=== PATIENT | male | born 1960 | race Asian ===

== ENCOUNTER → 2016-12-15 | Outpatient (CLI) | payer OTHER | END | disposition home or self-care (01) | LOC: RAD 11:06 | PROVIDERS: ATTEND Family Medicine | DX: M47.896 Other spondylosis, lumbar region (principal); M47.897 Other spondylosis, lumbosacral region; M25.842 Other specified joint disorders, left hand | CPT/HCPCS: 72110 ==

== ENCOUNTER → 2017-03-01 | Outpatient (CLI) | payer OTHER | LOC: CVU 10:44 | PROVIDERS: ATTEND Family Medicine | DX: I08.3 Combined rheumatic disorders of mitral, aortic and tricuspid valves (principal) | CPT/HCPCS: 93306 ==

== ENCOUNTER → 2017-12-07 | Outpatient (CLI) | payer OTHER | END | disposition home or self-care (01) | LOC: RAD 13:42 | PROVIDERS: ATTEND Family Medicine | DX: M47.894 Other spondylosis, thoracic region (principal) | CPT/HCPCS: 72072 ==

== ENCOUNTER 2019-11-23 17:34 | Emergency (ER) | payer BC, OTHER ==
[~2019-11-23] VITALS: Ht 165.1 cm; Wt 76.9 kg
--- NOTE | 2019-11-23 19:42 | NUR ---
C/O PAIN TO POSTERIOR BASE OF NECK, LT SIDED X 1 WEEK. DENIES TRAUMA, NUMBNESS/TINGLING TO UE'S BILAT. WORKS IN [employer] + ROM UE'S BILAT, RADIAL PULSES STRONG & REG BILAT.
[2019-11-23] MEDS ORDERED: METOPROLOL (19:45)
[2019-11-23] MEDS ORDERED: AMLODIPINE (19:45)
[2019-11-23] MEDS ORDERED: METF500T17 PO (19:49)
[2019-11-23] MEDS ORDERED: DM MEDICATION (19:49)
[2019-11-23] MEDS ORDERED: [UNRECOGNIZED DRUG - REMARK] (19:49)
[2019-11-23] MEDS ORDERED: MITIGARE (19:49)
[2019-11-23] MEDS ORDERED: TERAZOSIN (19:49)
[2019-11-23] MEDS ORDERED: INDOMETHACIN (19:49)
[2019-11-23] MEDS ORDERED: ALLO100T30 PO (19:49)
[2019-11-23] MEDS ORDERED: KETOROLAC 30 MG/1 ML ONE (19:57)
[2019-11-23] MEDS ORDERED: METHOCARBAMOL 750 MG TABLET ONE (19:57)
[2019-11-23] MEDS ORDERED: KETOROLAC 30 MG/1 ML IM ONE (20:00)
[2019-11-23] MEDS ORDERED: METHOCARBAMOL 750 MG TABLET PO ONE (20:00)
[2019-11-23 20:11] VITALS: BP 150/93
== END 2019-11-23 20:33 ==
LOC: ED 20:27
DX: S16.1XXA Strain of muscle, fascia and tendon at neck level, initial encounter (principal); M62.838 Other muscle spasm; I10 Essential (primary) hypertension; E11.9 Type 2 diabetes mellitus without complications; X58.XXXA Exposure to other specified factors, initial encounter; Y93.89 Activity, other specified; Y92.69 Other specified industrial and construction area as the place of occurrence of the external cause; Y99.0 Civilian activity done for income or pay
CPT/HCPCS: 71045; 96372; 99283; J1885